=== PATIENT | female | born 1980 | race Caucasian/White ===

== ENCOUNTER 2020-04-10 05:32 | Day surgery (SDC) | payer OTHER ==
[2020-04-05 16:19] VITALS: BMI 29.2
[2020-04-10 12:03] VITALS: TEMP 97.7
[2020-04-10 14:21] VITALS: PULSE 65
[2020-04-10 14:24] VITALS: BP 111/65
== END 2020-04-10 12:55 | disposition home or self-care (01) ==
LOC: JASU-ENDO 05:32
PROVIDERS: ATTEND Internal Medicine Gastroenterology
PROC: 0DJD8ZZ Inspection of Lower Intestinal Tract, Via Natural or Artificial Opening Endoscopic (ICD-10-PCS; principal; 2020-04-10 10:30)
DX: Z12.11 Encounter for screening for malignant neoplasm of colon (principal); Z15.09 Genetic susceptibility to other malignant neoplasm; Z83.71 Family history of colonic polyps; K64.8 Other hemorrhoids; Q43.8 Other specified congenital malformations of intestine
CPT/HCPCS: 81025

== ENCOUNTER 2021-04-11 04:40 | Day surgery (SDC) | payer OTHER ==
[2021-04-09 15:01] VITALS: BMI 32.2
[2021-04-11 12:00] VITALS: BP 116/90; PULSE 76; TEMP 98.4
== END 2021-04-11 11:30 | disposition home or self-care (01) ==
LOC: JASU-ENDO 04:40
PROVIDERS: ATTEND Internal Medicine Gastroenterology
PROC: 0DB78ZX Excision of Stomach, Pylorus, Via Natural or Artificial Opening Endoscopic, Diagnostic (ICD-10-PCS; 2021-04-11)
PROC: 0DB48ZX Excision of Esophagogastric Junction, Via Natural or Artificial Opening Endoscopic, Diagnostic (ICD-10-PCS; principal; 2021-04-11 10:00)
DX: K29.50 Unspecified chronic gastritis without bleeding (principal); K22.70 Barrett's esophagus without dysplasia; K31.7 Polyp of stomach and duodenum; K44.9 Diaphragmatic hernia without obstruction or gangrene; Z87.19 Personal history of other diseases of the digestive system
CPT/HCPCS: 81025; 88305-TC; 88342-TC

== ENCOUNTER 2021-05-23 17:28 | Observation (INO) | payer OTHER ==
[2021-05-23] MEDS ORDERED: amLODIPine BESYLATE 5 MG TABLET (FP) PO ONE (19:40)
[2021-05-23 19:54] LABS: BASO % 1.1 % (0-2.0); EOS % 10.2 % (0-4.5); HEMOGLOBIN 12.6 GM/dL (10.7-15.3); LYMPH % 25.7 % (8-40); MCH 27.5 pg (25.7-33.7); MCHC 34.1 g/dl (32.0-36.0); MEAN CELL VOLUME 80.6 fl (80-96); MEAN PLT VOLUME 8.2 fl (7.5-11.1); MONO % 7.2 % (3.8-10.2); NEUT % 55.8 % (42.8-82.8); PLATELET COUNT 343 10^3/uL (134-434); RBC 4.59 M/mm3 (3.60-5.2); WHITE BLOOD COUNT 8.5 K/mm3 (4.0-10.0)
[2021-05-23 20:02] LABS: INR 0.95 (0.83-1.09); PROTHROMBIN TIME (PATIENT) 10.6 SEC (9.7-13.0)
[2021-05-23 20:03] LABS: EPI CELLS 24 /uL (0-25.1); HCG,QUALITATIVE URINE Negative; HYALINE CASTS 1 /uL (0-3.1); URINE APPEARANCE CLEAR; URINE BACTERIA 43 /uL (0-1359); URINE BILIRUBIN NEGATIVE (NEGATIVE); URINE COLOR YELLOW; URINE GLUCOSE (UA) NEGATIVE (NEGATIVE); URINE KETONE NEGATIVE (NEGATIVE); URINE LEUK ESTERASE TRACE (NEGATIVE); URINE NITRITE NEGATIVE (NEGATIVE); URINE PROTEIN TRACE (NEGATIVE); URINE RBC 49 /uL (0-23.9); URINE UROBILINOGEN 0.2 mg/dL (0.2-1.0); URINE WBC 10 /uL (0-25.8)
[2021-05-23] MEDS ORDERED: amLODIPine BESYLATE 5 MG TABLET (FP) ONE (20:10)
[2021-05-23 20:12] LABS: CHLORIDE 112 mmol/L (98-107); SODIUM 142 mmol/L (136-145)
[2021-05-23 20:15] LABS: URINE BARBITURATES NEGATIVE (NEGATIVE)
[2021-05-23 20:15] LABS: ALBUMIN 4.3 g/dl (3.4-5.0); ANION GAP 9 MMOL/L (8-16); BLOOD UREA NITROGEN 15.8 mg/dL (7-18); CALCIUM 8.8 mg/dL (8.5-10.1); CO2 22 mmol/L (21-32); GLUCOSE,RANDOM 88 mg/dL (74-106)
[2021-05-23 20:16] LABS: METHADONE, UR NEGATIVE (NEGATIVE); OPIATES, URI NEGATIVE (NEGATIVE); PHENCYCLIDINE,URINE NEGATIVE (NEGATIVE); URINE BENZODIAZEPINES NEGATIVE (NEGATIVE)
[2021-05-23 20:19] LABS: SGOT/AST 15 U/L (15-37); SGPT/ALT 20 U/L (13-61)
[2021-05-23 20:21] LABS: ALK PHOS 70 U/L (45-117); BILIRUBIN,TOTAL 0.3 mg/dL (0.2-1); TOT PROT 7.2 g/dl (6.4-8.2)
[2021-05-23 20:24] LABS: COCAINE, UR NEGATIVE (NEGATIVE); URINE AMPHETAMINES POSITIVE (NEGATIVE)
[2021-05-24] MEDS: amLODIPine BESYLATE 5 MG TABLET (FP) PO SCH ×2 (06:09→22:03)
[2021-05-24] MEDS: LEVOTHYROXINE NA 112 MCG TABLET (FP) PO SCH (06:10)
[2021-05-24 06:33] LABS: HEMATOCRIT 35.7 % (32.4-45.2); HEMOGLOBIN 12.2 GM/dL (10.7-15.3); MCH 27.6 pg (25.7-33.7); MCHC 34.3 g/dl (32.0-36.0); MEAN CELL VOLUME 80.7 fl (80-96); MEAN PLT VOLUME 7.8 fl (7.5-11.1); PLATELET COUNT 319 10^3/uL (134-434); RBC 4.43 M/mm3 (3.60-5.2); RDW 17.2 % (11.6-15.6)
[2021-05-24 06:55] VITALS: BMI 32.4
[2021-05-24 07:04] LABS: ALBUMIN 3.7 g/dl (3.4-5.0); CALCIUM 8.4 mg/dL (8.5-10.1); MAGNESIUM 2.3 mg/dL (1.8-2.4)
[2021-05-24 07:08] LABS: BILIRUBIN,TOTAL 0.4 mg/dL (0.2-1); CREATININE 0.9 mg/dL (0.55-1.3); PHOSPHOROUS 3.2 mg/dL (2.5-4.9)
[2021-05-24 07:09] LABS: TOT PROT 6.6 g/dl (6.4-8.2)
[2021-05-24] MEDS ORDERED: ALBUTEROL SO4 HFA INHALER IH PRN (07:30)
[2021-05-24] MEDS: ENOXAPARIN NA (PORCINE) 40 MG/0.4 ML DISP.SYRIN SQ SCH (09:26)
[2021-05-24] MEDS: hydrALAZINE HCL 25 MG TABLET (FP) PO SCH ×2 (09:27→22:02)
[2021-05-24] MEDS: PANTOPRAZOLE 40 MG TABLET PO SCH (09:27)
[2021-05-24] MEDS: MONTELUKAST NA 10 MG TABLET PO SCH (09:27)
[2021-05-24] MEDS ORDERED: LOSARTAN POTASSIUM 25 MG TABLET PO SCH (10:30)
[2021-05-24 11:33] LABS: METHADONE, UR NEGATIVE (NEGATIVE); OPIATES, URI NEGATIVE (NEGATIVE); URINE AMPHETAMINES NEGATIVE (NEGATIVE); URINE BENZODIAZEPINES NEGATIVE (NEGATIVE)
[2021-05-24 11:34] LABS: PHENCYCLIDINE,URINE NEGATIVE (NEGATIVE)
[2021-05-24 11:35] LABS: COCAINE, UR NEGATIVE (NEGATIVE); URINE BARBITURATES NEGATIVE (NEGATIVE)
[2021-05-24 13:26] LABS: METHADONE, UR NEGATIVE (NEGATIVE); OPIATES, URI NEGATIVE (NEGATIVE); PHENCYCLIDINE,URINE NEGATIVE (NEGATIVE); URINE AMPHETAMINES NEGATIVE (NEGATIVE); URINE BENZODIAZEPINES NEGATIVE (NEGATIVE)
[2021-05-24 13:33] LABS: COCAINE, UR NEGATIVE (NEGATIVE); URINE BARBITURATES NEGATIVE (NEGATIVE)
[2021-05-24] MEDS: ACETAMINOPHEN 325 MG TABLET (FP) PO PRN ×2 (14:06→22:03)
[2021-05-24] MEDS ORDERED: ONDANSETRON 4 MG/2 ML VIAL IVPUSH PRN (18:50)
[2021-05-24] MEDS: ATORVASTATIN CA 10 MG TABLET (FP) PO SCH (22:02)
[2021-05-25] MEDS: ACETAMINOPHEN 325 MG TABLET (FP) PO PRN (05:08)
[2021-05-25] MEDS: LEVOTHYROXINE NA 112 MCG TABLET (FP) PO SCH (06:37)
[2021-05-25 08:09] LABS: BASO % 1.8 % (0-2.0); EOS % 9.8 % (0-4.5); HEMATOCRIT 36.3 % (32.4-45.2); HEMOGLOBIN 12.4 GM/dL (10.7-15.3); MCH 27.9 pg (25.7-33.7); MCHC 34.1 g/dl (32.0-36.0); MEAN CELL VOLUME 81.9 fl (80-96); MEAN PLT VOLUME 8.2 fl (7.5-11.1); MONO % 7.7 % (3.8-10.2); NEUT % 53.7 % (42.8-82.8); PLATELET COUNT 328 10^3/uL (134-434); RBC 4.44 M/mm3 (3.60-5.2); RDW 16.6 % (11.6-15.6); WHITE BLOOD COUNT 6.3 K/mm3 (4.0-10.0)
[2021-05-25 08:39] LABS: ALBUMIN 3.7 g/dl (3.4-5.0); BLOOD UREA NITROGEN 13.3 mg/dL (7-18); CALCIUM 8.3 mg/dL (8.5-10.1); MAGNESIUM 2.3 mg/dL (1.8-2.4)
[2021-05-25 08:42] LABS: CREATININE 1.1 mg/dL (0.55-1.3)
[2021-05-25 08:44] LABS: BILIRUBIN,TOTAL 0.6 mg/dL (0.2-1); TOT PROT 6.7 g/dl (6.4-8.2)
[2021-05-25] MEDS: hydrALAZINE HCL 25 MG TABLET (FP) PO SCH ×2 (09:06→21:39)
[2021-05-25] MEDS: PANTOPRAZOLE 40 MG TABLET PO SCH (09:06)
[2021-05-25] MEDS: MONTELUKAST NA 10 MG TABLET PO SCH (09:06)
[2021-05-25] MEDS: ENOXAPARIN NA (PORCINE) 40 MG/0.4 ML DISP.SYRIN SQ SCH (09:07)
[2021-05-25] MEDS: amLODIPine BESYLATE 5 MG TABLET (FP) PO SCH (21:39)
[2021-05-25] MEDS: METOPROLOL TARTRATE 25 MG TABLET (FP) PO SCH (21:39)
[2021-05-25] MEDS: ATORVASTATIN CA 10 MG TABLET (FP) PO SCH (21:39)
[2021-05-26] MEDS: LEVOTHYROXINE NA 112 MCG TABLET (FP) PO SCH (06:30)
[2021-05-26 08:26] LABS: BASO % 1.7 % (0-2.0); EOS % 7.8 % (0-4.5); HEMATOCRIT 36.6 % (32.4-45.2); HEMOGLOBIN 12.4 GM/dL (10.7-15.3); LYMPH % 28.6 % (8-40); MCH 27.9 pg (25.7-33.7); MCHC 33.8 g/dl (32.0-36.0); MEAN CELL VOLUME 82.5 fl (80-96); MEAN PLT VOLUME 8.5 fl (7.5-11.1); MONO % 8.5 % (3.8-10.2); NEUT % 53.4 % (42.8-82.8); PLATELET COUNT 314 10^3/uL (134-434); RBC 4.44 M/mm3 (3.60-5.2); RDW 16.8 % (11.6-15.6); WHITE BLOOD COUNT 5.6 K/mm3 (4.0-10.0)
[2021-05-26 08:51] LABS: CALCIUM 8.5 mg/dL (8.5-10.1)
[2021-05-26 08:52] LABS: ALBUMIN 3.6 g/dl (3.4-5.0); BLOOD UREA NITROGEN 14.4 mg/dL (7-18); MAGNESIUM 2.3 mg/dL (1.8-2.4)
[2021-05-26 08:56] LABS: BILIRUBIN,TOTAL 0.5 mg/dL (0.2-1); TOT PROT 6.4 g/dl (6.4-8.2)
[2021-05-26] MEDS: PANTOPRAZOLE 40 MG TABLET PO SCH (09:30)
[2021-05-26] MEDS: hydrALAZINE HCL 25 MG TABLET (FP) PO SCH ×2 (09:30→21:20)
[2021-05-26] MEDS: METOPROLOL TARTRATE 25 MG TABLET (FP) PO SCH ×2 (09:30→21:20)
[2021-05-26] MEDS: LOSARTAN POTASSIUM 25 MG TABLET PO SCH (09:30)
[2021-05-26] MEDS: ENOXAPARIN NA (PORCINE) 40 MG/0.4 ML DISP.SYRIN SQ SCH (09:30)
[2021-05-26] MEDS: MONTELUKAST NA 10 MG TABLET PO SCH (09:30)
[2021-05-26] MEDS: amLODIPine BESYLATE 5 MG TABLET (FP) PO SCH (21:21)
[2021-05-26] MEDS: ATORVASTATIN CA 10 MG TABLET (FP) PO SCH (21:21)
[2021-05-27] MEDS: LEVOTHYROXINE NA 112 MCG TABLET (FP) PO SCH (06:11)
[2021-05-27 06:51] LABS: BASO % 1.9 % (0-2.0); EOS % 6.9 % (0-4.5); HEMOGLOBIN 11.8 GM/dL (10.7-15.3); MCH 27.8 pg (25.7-33.7); MCHC 33.6 g/dl (32.0-36.0); MEAN CELL VOLUME 82.8 fl (80-96); MEAN PLT VOLUME 8.5 fl (7.5-11.1); MONO % 8.4 % (3.8-10.2); NEUT % 56.8 % (42.8-82.8); PLATELET COUNT 288 10^3/uL (134-434); RBC 4.23 M/mm3 (3.60-5.2); RDW 16.7 % (11.6-15.6); WHITE BLOOD COUNT 5.8 K/mm3 (4.0-10.0)
[2021-05-27 07:09] LABS: CALCIUM 8.1 mg/dL (8.5-10.1)
[2021-05-27 07:10] LABS: ALBUMIN 3.4 g/dl (3.4-5.0); MAGNESIUM 2.2 mg/dL (1.8-2.4)
[2021-05-27 07:13] LABS: BLOOD UREA NITROGEN 15.9 mg/dL (7-18)
[2021-05-27 07:14] LABS: BILIRUBIN,TOTAL 0.3 mg/dL (0.2-1)
[2021-05-27 08:54] VITALS: BP 128/63; PULSE 82; TEMP 97.7
[2021-05-27] MEDS: LOSARTAN POTASSIUM 25 MG TABLET PO SCH (09:02)
[2021-05-27] MEDS: ENOXAPARIN NA (PORCINE) 40 MG/0.4 ML DISP.SYRIN SQ SCH (09:02)
[2021-05-27] MEDS: hydrALAZINE HCL 25 MG TABLET (FP) PO SCH (09:02)
[2021-05-27] MEDS: METOPROLOL TARTRATE 25 MG TABLET (FP) PO SCH (09:02)
[2021-05-27] MEDS: PANTOPRAZOLE 40 MG TABLET PO SCH (09:02)
[2021-05-27] MEDS: MONTELUKAST NA 10 MG TABLET PO SCH (09:02)
[2021-05-27] MEDS: ACETAMINOPHEN 325 MG TABLET (FP) PO PRN (09:32)
[2021-05-27] MEDS ORDERED: hydrALAZINE HCL 10 MG TABLET PO SCH (22:00)
== END 2021-05-27 17:20 | disposition home or self-care (01) ==
LOC: JER 17:28 → JERBED 23:27 → J4W 05-24 05:50
PROVIDERS: ADMIT Internal Medicine; ATTEND Nurse Practitioner Acute Care
PROC: 3E023GC Introduction of Other Therapeutic Substance into Muscle, Percutaneous Approach (ICD-10-PCS; principal; 2021-05-23)
DX: D35.00 Benign neoplasm of unspecified adrenal gland (principal); Q87.81 Alport syndrome; I10 Essential (primary) hypertension; K22.70 Barrett's esophagus without dysplasia; J45.909 Unspecified asthma, uncomplicated; M32.9 Systemic lupus erythematosus, unspecified; F90.9 Attention-deficit hyperactivity disorder, unspecified type; H53.009 Unspecified amblyopia, unspecified eye; E06.3 Autoimmune thyroiditis; E78.00 Pure hypercholesterolemia, unspecified; Z87.891 Personal history of nicotine dependence; E66.8 Other obesity; Z68.32 Body mass index [BMI] 32.0-32.9, adult; M34.9 Systemic sclerosis, unspecified; K21.9 Gastro-esophageal reflux disease without esophagitis; K44.9 Diaphragmatic hernia without obstruction or gangrene; F16.10 Hallucinogen abuse, uncomplicated
CPT/HCPCS: 36415; 71046-TC-FY; 74177-TC; 80053; 80307; 81003; 82024; 82533; 82550; 82570; 83735; 83835; 84100; 84439; 84443; 84480; 84484; 84585; 84703; 85025; 85027; 85610; 85730; 93005; 93010; 93306-TC; 94010; 96372; 99285-25; C9803; G0378; Q9967; U0003; U0005

== ENCOUNTER 2023-12-22 04:12 | Day surgery (SDC) | payer BC, OTHER ==
[2023-12-17 15:38] VITALS: BMI 32.8
[2023-12-22 08:27] VITALS: TEMP 98.2
[2023-12-22 08:55] VITALS: RESP 18
[2023-12-22] MEDS ORDERED: ALBUTEROL SO4 0.083% IH SOL 2.5 MG/3 ML VIAL.NEB. NEB ONE (09:17)
[2023-12-22] MEDS ORDERED: ONDANSETRON *ODT* 4 MG TABLET ONE (09:23)
[2023-12-22] MEDS: ONDANSETRON *ODT* 4 MG TABLET SL ONE (09:45)
[2023-12-22 10:13] VITALS: BP 101/71; PULSE 88
== END 2023-12-22 10:02 | disposition home or self-care (01) ==
LOC: JASU-ENDO 04:12
PROVIDERS: ATTEND Internal Medicine Gastroenterology
PROC: 0DB78ZX Excision of Stomach, Pylorus, Via Natural or Artificial Opening Endoscopic, Diagnostic (ICD-10-PCS; 2023-12-22)
PROC: 0DB68ZX Excision of Stomach, Via Natural or Artificial Opening Endoscopic, Diagnostic (ICD-10-PCS; 2023-12-22)
PROC: 0DB38ZX Excision of Lower Esophagus, Via Natural or Artificial Opening Endoscopic, Diagnostic (ICD-10-PCS; principal; 2023-12-22 08:00)
DX: K21.00 Gastro-esophageal reflux disease with esophagitis, without bleeding (principal); K44.9 Diaphragmatic hernia without obstruction or gangrene; K29.50 Unspecified chronic gastritis without bleeding; K31.7 Polyp of stomach and duodenum
CPT/HCPCS: 81025; 88305-TC; 88342-TC; Q0162